=== PATIENT | male | born 1980 | race Caucasian/White ===

== ENCOUNTER 2017-04-17 20:34 | Emergency (ER) | payer SELFPAY ==
[~2017-04-17] VITALS: Ht 177.8 cm; Wt 81.6 kg
[2017-04-17 20:34] VITALS: BP_SYST 144
--- NOTE | 2017-04-17 20:34 | NUR ---
Patient to ER chair to [facility] for evaluation. Side rails up. Report given to OJSE C GALLEGOS.
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
--- NOTE | 2017-04-17 21:31 | NUR ---
[facility]KTOR[facility] examining patient.
[2017-04-17 21:40] VITALS: BP_SYST 144
--- NOTE | 2017-04-17 21:40 | NUR ---
Patient given written and verbal discharge instructions and verbalizes understanding. ER MD discussed with patient the results and treatment provided. Patient in stable condition. ID arm band removed. NO Rx given. Patient educated on pain management and to follow up with PMD. Pain Scale 0/10. Opportunity for questions provided and answered.
== END 2017-04-17 21:40 | disposition home or self-care (01) ==
LOC: SED 20:34
DX: Z02.89 Encounter for other administrative examinations (principal); V89.2XXA Person injured in unspecified motor-vehicle accident, traffic, initial encounter; Y93.89 Activity, other specified; Y92.488 Other paved roadways as the place of occurrence of the external cause; Y99.8 Other external cause status
CPT/HCPCS: 99283